=== PATIENT | female | born 1980 | race Caucasian/White ===

== ENCOUNTER 2023-09-01 13:44 | Emergency (ER) | payer BC, SELFPAY ==
[2023-09-01 13:45] VITALS: BP 164/99; PULSE 108; RESP 18; TEMP 35.7; O2SAT 100; BMI 45.7
--- NOTE | 2023-09-01 15:42 | EX.ED.DYSGE1 ---
HPI History of Present Illness Chief Complaint: Hypertension Narrative Narrative: 42-year-old female who denies significant past medical history, does not follow-up with a primary care provider, presents from her [employer]'s office with elevated blood pressure. She states that she was there, seeing the nurse registered nurse first assistant for the first time for heavy vaginal bleeding. She is not . They noticed that her blood pressure was elevated at 174 systolic. They suggested that she follow-up with urgent care because they were unable to schedule her with [facility] physician for outpatient follow-up. She denies any chest pain or shortness of breath. She states that whenever she goes to the doctor she has elevated blood pressure. She might have very mild headache from the events of the day, but denies any paresthesias, no swelling of her legs, no other symptoms. She states that urgent care sent her here instead. PFSH PFSH Allergy/AdvReac Type Severity Reaction Status Date / Time Penicillins Allergy Mild Rash Verified 09/01/23 13:45 Social History Smoking Status: Never smoker ROS ROS ED ROS Narrative Constitutional: No fever, no chills. HEENT: No sore throat. No neck pain. No loss of vision. No rhinorrhea. Cardiovascular: No chest pain. No palpitations. No pedal edema. Respiratory: No cough, no shortness of breath. Abdominal: No abdominal pain. No nausea. No vomiting. Genitourinary: No dysuria. No hematuria. Musculoskeletal: No myalgias. No arthralgias. Neurologic: Minimal headache starting today. No dizziness. No lightheadedness. Skin: No rash. No change in color. Psychiatric: No depression. No anxiety. EXAM Physical Exam Narrative Exam Narrative: Afebrile. Vital signs noted. HEENT: Normocephalic. Atraumatic. PERRL, EOMI. Neck soft and supple. No point tenderness or step off. Cardiovascular: Regular rate and rhythm. No murmurs, rubs, or gallops appreciated. Respiratory: No tachypnea. Lungs clear to auscultation bilaterally. Gastrointestinal: Abdomen soft, obese, nontender, with normoactive bowel sounds. No rebound or guarding. Neurological: Awake. Alert. Nonfocal, nonlateralizing. Ambulatory in ED. Skin: No rash. Normal color. No pallor. Musculoskeletal: No pedal edema. Full range of motion extremities. Const Vital Signs: 09/01/23 13:45 09/01/23 15:53 Temperature 96.2 F L Temperature Source Temporal Pulse Rate 108 H Respiratory Rate 18 Blood Pressure 164/99 H 149/89 H Blood Pressure Mean 120 109 Pulse Ox 100 Oxygen Delivery Method Room Air MDM MDM MDM Narrative Medical decision making narrative: Her blood pressure was noted to be 164/99 in triage. She is essentially asymptomatic with her blood pressure. I do not feel laboratory work or imaging is indicated. I do not feel a CT of the brain is indicated as well because I have low suspicion for intracranial hemorrhage secondary to hypertension. She will be placed on a monitor. I will recommend follow-up with a primary care provider. She is to keep a log of her blood pressures and return if she is more symptomatic. RN reports blood pressure of 149/89. When I went to the room, her blood pressure is now 138/80. I do feel she probably has more of a whitecoat syndrome. I feel she can be discharged to follow-up with her primary care provider. She will still keep a log of her blood pressures perhaps show them that they have normalized and that she does have whitecoat syndrome. Return instructions to the emergency department were reviewed. Disposition is discharged home in stable condition. History & Record Review Discussion w/independent historian: Patient Additional record(s) reviewed:: Prior outpatient record (From [employer] office) Discharge Plan Triage Chief Complaint: Hypertension Other Complaint: Vag Bleeding ED Provider: Matt Matute Dx/Rx/DC Orders Clinical Impression: Elevated blood pressure reading in office with white coat syndrome, without diagnosis of hypertension Instructions: ED Hypertension, To Be Confirmed Primary Care Provider: Care Physician,No Primary Referrals: Nixon Molina MD [Med Staff - Active Staff] - As soon as possible NOT,DEFINED [Non-Staff] - Activity Restrictions/Additional Instructions: Keep a log of your blood pressures over the next week. Follow-up with primary care. Disposition Disposition: Home, Self Care
[2023-09-01 15:53] VITALS: BP 149/89
--- OUTSIDE RECORDS SUMMARY | 2023-09-01 23:55 | XMS RPT_ITS ---
Author Name Auto Generated Organization [facility] Care Team Providers Care Electronic News Gathering Editor Name Role Phone SELF Referring Unavailable KRISTI FORREST Referring Unavailable KATIE SAMUEL Attending Unavailable PROBLEMS DATE TYPE CONDITION / CODE ATTENDING STATUS SYBIL RCE 09/01/2023 Active Abnormal uterine bleeding (AUB) / N93.9(ICD-10) NA Active [facility] PROCEDURES No Procedure Records Found RESULTS CNOV Observed: 09/01/2023 1:45 PM Status: COMPLETED Source: [facility] REPOSITORY Office Visit (WSTR) SURJITMONSE ([id number]) 1980 F Date Time Provider Department 09/01/23 1:45 PM MONICA CHENEY [facility] During your visit today, we recorded the following information about you: Monica Cheney APRN.CNP 09/01/2023 1:30 PM Signed Patient was seen in her [employer] office for heavier than normal periods. Patient was noted to have a significantly high blood pressure and a headache. Patient was then instructed to see the ER or express care. Express care does not evaluate or treat high blood pressure that is symptomatic. Patient is being referred to the ED. Wants to take her self refused to squad. Patient was okay with this care plan. Referring Provider: SELF [[id number]] Allergies As of Date: 09/01/2023 Noted Allergy Reaction PENICILLINS 09/01/2023 2 - Rash Date Reviewed: 09/01/2023 Reviewed by: Kristi Forrest APRN.CNP - Fully Assessed Primary Visit Diagnosis:Headache, unspecified headache type [R51.9] Prescriptions as of 09/01/2023 - fexofenadine HCl (TRINA ORAL) Take by mouth. Problem List As Of Date: 09/01/2023 (None) Encounter Status:Closed by MONICA CHENEY on 09/01/23 PROGRESS Observed: 09/01/2023 1:29 PM Status: COMPLETED Source: [facility] REPOSITORY HNO ID: [id number] Author: MONICA CHENEY APRN.PUBLIC RELATIONS CONSULTANT Service: ? Author Type: Nurse Practitioner Type: Progress Notes Filed: 09/01/2023 13:30 Note Text: Patient was seen in her [employer] office for heavier than normal periods. Patient was noted to have a significantly high blood pressure and a headache. Patient was then instructed to see the ER or express care. Express care does not evaluate or treat high blood pressure that is symptomatic. Patient is being referred to the ED. Wants to take her self refused to squad. Patient was okay with this care plan. CNOV Observed: 09/01/2023 1:10 PM Status: COMPLETED Source: [facility] REPOSITORY Office Visit (OBGYWM) MONSE EDDY ([id number]) 1980 F Date Time Provider Department 09/01/23 1:10 PM KRISTI FORREST OBGYWM During your visit today, we recorded the following information about you: Blood pressure Weight Height Last Period 174 123.8 kg 1.651 m 08/24/23 Kristi Forrest APRN.PUBLIC RELATIONS CONSULTANT 09/01/2023 12:49 PM Signed Monse Eddy is a 42 year old female who presents for problem visit of one heavy period. HPI: Monse started her period on 08/24 and noticed that her period was much heavier than normal. She soaked a pad/tampon every 2 hours. It was not painful, just her regular cramping. She missed her last period. She does report some increased stress as her stepdaughter just moved back in. OB History No obstetric history on file. Opinion Polls Survey Worker History LMP: 08/24/2023 (Exact Date), Having periods Age at Menarche: Age at First : Age at Menopause: Opinion Polls Survey Worker History Comments: Sexual Activity: Yes; Male Contraception: None PAST MEDICAL HISTORY Diagnosis Date Essential hypertension 2016 Gestational diabetes 2016 PAST SURGICAL HISTORY Procedure Laterality Date REMOVAL GALLBLADDER FAMILY HISTORY Problem Relation Age of Onset Hypertension Mother Hypertension Sister Social History Tobacco Use Smoking status: Never Smokeless tobacco: Never Vaping Use Vaping Use: Never used Substance Use Topics Alcohol use: Not Currently Drug use: Never Current Outpatient Medications Medication Sig fexofenadine HCl (TRINA ORAL) Take by mouth. No current facility-administered medications for this visit. Allergies As of Date: 09/01/2023 Allergen Noted Reaction PENICILLINS 09/01/2023 Rash Fully Assessed 09/01/2023 REVIEW OF SYSTEMS Abdomen: No bloating, early satiety, indigestion, or increased flatulence. No abdominal pain, nausea, vomiting, diarrhea, or constipation. Bladder: No dysuria, gross hematuria, urinary frequency, urinary urgency, or incontinence. Breast: No breast lumps, nipple d/c, overlying skin changes, redness or skin retraction. Expanded ROS: N/A Allergies and current medication updated:Yes EXAM: BP 178/94 Ht 5' 5 (1.65m) Wt 273 lb (123.8kg) LMP 08/24/2023 BMI 45.43 kg/(m2). GENERAL: pleasant, female in no apparent distress HEENT: Normocephalic, atraumatic, mucus membranes moist, and no lesions NECK: Supple, full range of motion, no adenopathy, and thyroid normal DERMATOLOGY: Normal, without lesions, non-icteric, and non-hirsute BREAST: deferred CHEST: Normal inspiratory effort NEURO: alert and oriented x3,exam grossly non-focal EXTREMITIES: normal ASSESSMENT AND PLAN: 1. Abnormal uterine bleeding (AUB) - ICD9: 626.9, ICD10: N93.9 - Heavy bleeding x1 episode, has now decreased - Discussed the effects of stress on the menstrual cycle - Discussed herman menopause and its affects - possible missed cycles, heavier cycle - Labs today - Declines contraception - To notify if next cycle is also heavy or if she experiences bleeding between periods, would then recommend pelvic ultrasound and EMB - Encouraged as healthy lifestyle as possible - RTO for annual exam - CBC - TSH BLD - T4 FREE/FREE THYROX - FSH BLD - ESTRADIOL-17B BLD 2. Elevated blood pressure reading without diagnosis of hypertension - ICD9: 796.2, ICD10: R03.0 - 178/94 - Reports a dull headache - Recommend evaluation in the ER/urgent care - Discussed high risk for stroke and cardiovascular events with elevated BP - Strongly recommend follow up as well with family physician for blood pressure management, patient verbalizes understanding. Kristi Forrest APRN.CNP Medical Decision Making: Problems: Moderate: New problem with uncertain prognosis Data: Unique test(s) ordered: 3+ Risk: Minimal: Minimal risk from testing/treatment Medical Decision Making Level: 4 - Moderate Allergies As of Date: 09/01/2023 Noted Allergy Reaction PENICILLINS 09/01/2023 2 - Rash Date Reviewed: 09/01/2023 Reviewed by: Kristi Forrest APRN.PUBLIC RELATIONS CONSULTANT - Fully Assessed Reason for Visit: heavy menses [Other] Primary Visit Diagnosis:Abnormal uterine bleeding (AUB) [N93.9] Other Visit Diagnosis:Elevated blood pressure reading without diagnosis of hypertension [R03.0] Order(s):CBC [SQCBC] Order #: [id number] FUTURE TSH BLD [SQTSH] Order #: [id number] FUTURE T4 FREE/FREE THYROX [SQFT4] Order #: [id number] FUTURE FSH BLD [SQFSH] Order #: [id number] FUTURE ESTRADIOL-17B BLD [SQE2] Order #: [id number] FUTURE HCG QUANTITATIVE [SQHCGQT] Order #: [id number] FUTURE Prescriptions as of 09/01/2023 - fexofenadine HCl (TRINA ORAL) Take by mouth. Problem List As Of Date: 09/01/2023 (None) Disposition: Return for annual. Follow-up and Disposition History for Encounter Date Provider Department Center 09/01/2023 [id number]-GLVNYKRISTI FORREST [facility] Encounter Status:Closed by KRISTI FORREST on 09/01/23 ESTRADIOL SERPL-MCNC Collected: 09/01/2023 1:05 PM S tatus: F Source: [facility] REPOSITORY Order Comment: Specimen Type : BLOOD SPECIMEN Ordering Facility: [facility] Address: [address] [place] [address] TYPE CODE TESTS RESULT OUT OF RANGE REFERENCE UNITS LAB 2243-4(LOINC) Estradiol SerPl-mCnc 75 pg/mL Result Comment: This test is not suitable for patients receiving treatment with the drug Fulvestrant (Faslodex). The drug causes an interference leading to falsely elevated estradiol results. Menstrual cycle Estradiol reference ranges: Follicular : < 234 pg/mL Ovulation : 41 to 398 pg/mL Luteal : < 342 pg/mL Estradiol reference ranges vary by gestational period: First trimester : 154 to 3243 pg/mL Second trimester : 1561 to 98046 pg/mL Third trimester : 8285 to >81400 pg/mL Post-menopausal Estradiol reference range: < 41 pg/mL Reference: 1. Estradiol - E2 (Estradiol III) [package insert V 3.0 Sinhala]. [facility], [place], [place], December 2015. Performed By: #### 2243-4, 1 5067-2, 3024-7, 3016-3 #### [facility] CLIA [id number] [address] [place] [address] STATES OF [facility] FSH SERPL-ACNC Collected: 1:05 PM Status: F Source: [facility] REPOSITORY Order Comment: Specimen Type : BLOOD SPECIMEN Ordering Facility: [facility] Address: [address] [place] [address] TYPE CODE TESTS RESULT OUT OF RANGE REFERENCE UNITS LAB 25919-8(LOINC) FSH SerPl-aCnc 6.8 See comment mIU/mL Result Comment: Reference ra nge: Follicular: 3.5-12.5 mIU/mL Ovulation: 4.7-21.5 mIU/mL Luteal: 1.7-7.7 mIU/mL Postmenopausal: 25.8-134.8 mIU/mL Performed By: #### 2243-4, 1 5067-2, 3024-7, 3016-3 #### [facility] CLIA [id number] [address] [place], [place] [id number] [place] T4 FREE SERPL-MCNC Collected: 4 1:05 PM Status: F Source: [facility] REPOSITORY Order Comment: Specimen Type : BLOOD SPECIMEN Ordering Facility: [facility] Address: [address] [place] [address] TYPE CODE TESTS RESULT OUT OF RANGE REFERENCE UNITS LAB 3024-7(LOINC) T4 Free SerPl-mCnc 1.3 0.9-1.7 ng/dL Performed By: #### 2243-4, 1 5067-2, 3024-7, 3016-3 #### [facility] CLIA [id number] [address] [place] [address] [place] TSH SERPL-ACNC Collected: 4 1:05 PM Status: F Source: [facility] REPOSITORY Order Comment: Specimen Type : BLOOD SPECIMEN Ordering Facility: [facility] Address: [address] [place] [address] TYPE CODE TESTS RESULT OUT OF RANGE REFERENCE UNITS LAB 3016-3(LOINC) TSH SerPl-aCnc 1.450 0.270-4.200 mIU/L Result Comment: If the patie nt is , TSH reference range varies by gestational period: First Trimester (weeks 9-12): 0.180-2.990 mIU/L Second Trimester: 0.110-3.980 mIU/L Third Trimester: 0.480-4.710 mIU/L Syed Suresh et al. A Practical Approach for the Verifications and Determination of Site- and Trimester-Specific Reference Intervals for Thyroid Function tests in . Thyroid, 2019:29:3:412-420. Dajuan E, et al. 2017 Guidelines of the [place] Thyroid [employer] for the Diagnosis and Management of Thyroid Disease during and the . Thyroid, 2017:27:3:315-389. Performed By: #### 2243-4, 1 5067-2, 3024-7, 3016-3 #### [facility] CLIA [id number] [address] [place] [address] [place] B-HCG SERPL-ACNC Collected: 4 1:05 PM Status: F Source: [facility] REPOSITORY Order Comment: Specimen Type : BLOOD SPECIMEN Ordering Facility: [facility] Address: [address] [place] [address] TYPE CODE TESTS RESULT OUT OF RANGE REFERENCE UNITS LAB 23284-7([facility]) B-HCG SerPl-aCnc <0.6 <5.0 mIU/mL Result Comment: Negative Performed By: #### 06384-1 # ### [facility] CLIA [id number] [address] [place] [address] [id number] [place], [place] [id number] [facility] CBC PNL BLD AUTO Collected: 4 1:05 PM Status: F Source: [facility] REPOSITORY Order Comment: Specimen Type : BLOOD SPECIMEN Ordering Facility: [facility] Address: [address] [place] [address] TYPE CODE TESTS RESULT OUT OF RANGE REFERENCE UNITS LAB 6690-2(LOINC) WBC # Bld Auto 7.51 3.70-11.00 k/uL LAB 789-8(INC) RBC # Bld Auto 5.52 High 3.90-5.20 m/uL LAB 718-7(INC) Hgb Bld-mCnc 14.1 11.5-15.5 g/dL LAB 4544-3(INC) Hct VFr Bld Auto 43.2 36.0-46.0 % LAB 787-2(INC) MCV RBC Auto 78.3 Low 80.0-100.0 fL LAB 785-6(LOINC) MCH RBC Qn Auto 25.5 Low 26.0-34.0 pg LAB 786-4(LOINC) MCHC RBC Auto-mCnc 32.6 30.5-36.0 g/dL LAB 70750-7(LOINC) RDW RBC-Rto 13.6 11.5-15.0 % LAB 777-3(LOINC) Platelet # Bld Auto 356 150-400 k/uL LAB 97294-9(INC) PMV Bld Auto 9.1 9.0-12.7 fL LAB 771-6(LOINC) nRBC # Bld Auto <0.01 <0.01 k/uL Performed By: #### 45898-6 # ### [facility] CLIA [id number] [address] [place] [address] [place] PROGRESS Observed: 09/01/2023 12:11 PM Status: COMPLETED Source: [facility] REPOSITORY HNO ID: [id number] Author: KRISTI FORREST APRN.PUBLIC RELATIONS CONSULTANT Service: ? Author Type: Nurse Practitioner Type: Progress Notes Filed: 09/01/2023 12:49 Note Text: Monse Eddy is a 42 year old female who presents for problem visit of one heavy period. HPI: Monse started her period on 08/24 and noticed that her period was much heavier than normal. She soaked a pad/tampon every 2 hours. It was not painful, just her regular cramping. She missed her last period. She does report some increased stress as her stepdaughter just moved back in. OB History No obstetric history on file. Opinion Polls Survey Worker History LMP: 08/24/2023 (Exact Date), Having periods Age at Menarche: Age at First : Age at Menopause: Opinion Polls Survey Worker History Comments: Sexual Activity: Yes; Male Contraception: None PAST MEDICAL HISTORY Diagnosis Date Essential hypertension 2016 Gestational diabetes 2016 PAST SURGICAL HISTORY Procedure Laterality Date REMOVAL GALLBLADDER FAMILY HISTORY Problem Relation Age of Onset Hypertension Mother Hypertension Sister Social History Tobacco Use Smoking status: Never Smokeless tobacco: Never Vaping Use Vaping Use: Never used Substance Use Topics Alcohol use: Not Currently Drug use: Never Current Outpatient Medications Medication Sig fexofenadine HCl (TRINA ORAL) Take by mouth. No current facility-administered medications for this visit. Allergies As of Date: 09/01/2023 Allergen Noted Reaction PENICILLINS 09/01/2023 Rash Fully Assessed 09/01/2023 REVIEW OF SYSTEMS Abdomen: No bloating, early satiety, indigestion, or increased flatulence. No abdominal pain, nausea, vomiting, diarrhea, or constipation. Bladder: No dysuria, gross hematuria, urinary frequency, urinary urgency, or incontinence. Breast: No breast lumps, nipple d/c, overlying skin changes, redness or skin retraction. Expanded ROS: N/A Allergies and current medication updated:Yes EXAM: BP 178/94 Ht 5' 5 (1.65m) Wt 273 lb (123.8kg) LMP 08/24/2023 BMI 45.43 kg/(m2). GENERAL: pleasant, female in no apparent distress HEENT: Normocephalic, atraumatic, mucus membranes moist, and no lesions NECK: Supple, full range of motion, no adenopathy, and thyroid normal DERMATOLOGY: Normal, without lesions, non-icteric, and non-hirsute BREAST: deferred CHEST: Normal inspiratory effort NEURO: alert and oriented x3,exam grossly non-focal EXTREMITIES: normal ASSESSMENT AND PLAN: 1. Abnormal uterine bleeding (AUB) - ICD9: 626.9, ICD10: N93.9 - Heavy bleeding x1 episode, has now decreased - Discussed the effects of stress on the menstrual cycle - Discussed herman menopause and its affects - possible missed cycles, heavier cycle - Labs today - Declines contraception - To notify if next cycle is also heavy or if she experiences bleeding between periods, would then recommend pelvic ultrasound and EMB - Encouraged as healthy lifestyle as possible - RTO for annual exam - CBC - TSH BLD - T4 FREE/FREE THYROX - FSH BLD - ESTRADIOL-17B BLD 2. Elevated blood pressure reading without diagnosis of hypertension - ICD9: 796.2, ICD10: R03.0 - 178/94 - Reports a dull headache - Recommend evaluation in the ER/urgent care - Discussed high risk for stroke and cardiovascular events with elevated BP - Strongly recommend follow up as well with family physician for blood pressure management, patient verbalizes understanding. Kristi Forrest APRN.PUBLIC RELATIONS CONSULTANT Medical Decision Making: Problems: Moderate: New problem with uncertain prognosis Data: Unique test(s) ordered: 3+ Risk: Minimal: Minimal risk from testing/treatment Medical Decision Making Level: 4 - Moderate ALLERGIES DATE TYPE / CODE NAME / CODE REACTION SEVERITY SOURCE 09/01/2023 Drug Class/899904843(SN ED CT) PENICILLINS RASH [facility] ENCOUNTERS ADMIT/DISCHARGE ACCOUNT NUMBER ADMITTING ENCOUNTER CLASS LOC ATION SOURCE 09/01/2023/ 4 [id number] Ambulatory [facility] 09/01/2023/ 4 [id number] Ambulatory [facility] 09/01/[id number] [facility] PAYERS ENCOUNTER GUARANTOR PAYER SUBSCRIBER SOURCE 09/01/2023 Primary Insurance:BLUE ACCESS PPOPolicy Number: [id number] Date:[id number] Name:Lupillo AGUILERA: [id number] [place] [address] [facility] 09/01/2023 Primary Insurance:BLUE ACCESS PPOPolicy Number: [id number] Date:[id number] Name:Lupillo AGUILERA: [id number] [place] [address] [facility] 09/01/2023 Primary Insurance:BLUE ACCESS ZANAOPolicy Number: [id number] Date:[id number] Name:Lupillo AGUILERA: [id number] [place] [address] [facility]
== END 2023-09-01 16:36 | disposition home or self-care (01) ==
PROVIDERS: Emergency Provider Emergency Medicine; Visit Provider Emergency Medicine
DX: R03.0 Elevated blood-pressure reading, without diagnosis of hypertension (principal)
CPT/HCPCS: 99283